=== PATIENT | female | born 1990 | race African-American/Black ===

== ENCOUNTER 2017-12-16 13:41 | Emergency (ER) | payer OTHER ==
[~2017-12-16] VITALS: Ht 177.8 cm; Wt 81.6 kg
--- NOTE | 2017-12-16 13:41 | NUR ---
BART FROM HOME WITH CC OF VAGINAL IRRITATION AND DISCHARGE X 6 DAYS , VSS .
--- NOTE | 2017-12-16 14:30 | NUR ---
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
--- NOTE | 2017-12-16 14:56 | NUR ---
Patient discharged to home in stable condition. Written and verbal after care instructions given. Patient verbalizes understanding of instruction. VSS
[2017-12-16 14:57] VITALS: BP 120/55
[2017-12-16 15:18] LABS: APPEARANCE,URINE Clear (CLEAR); BILIRUBIN,URINE Negative (NEGATIVE); BLOOD, URINE Negative Ery/uL (NEGATIVE); COLOR,URINE Yellow (YELLOW); KETONES,URINE Negative (NEGATIVE); LEUKOCYTE ESTERASE ,URINE Negative (NEGATIVE); NITRITE, URINE Negative (NEGATIVE); PH,URINE 7.5 (5.0-8.0); PROTEIN,URINE Negative (NEGATIVE); UGLUCOSE Negative (NEGATIVE)
[2017-12-16 15:28] LABS: BACTERIA,URINE None seen /HPF (None Seen); SQUAMOUS EPITHELIAL CELL,UR Few /HPF (None Seen); WBC,URINE 0-2 /HPF (0-3)
== END 2017-12-16 15:00 | disposition home or self-care (01) ==
LOC: ER 13:42
DX: B37.3 Candidiasis of vulva and vagina (principal); F12.10 Cannabis abuse, uncomplicated
CPT/HCPCS: 81000-TC; 84703-TC; 87110-TC; 87210-TC; 87491; 87591; A4606; Z7610

== ENCOUNTER 2018-05-31 19:25 | Emergency (ER) | payer SELFPAY ==
[~2018-05-31] VITALS: Ht 177.8 cm; Wt 81.6 kg
--- NOTE | 2018-05-31 19:35 | NUR ---
PT BIBSELF C/O UPPER RESPIRATORY SYMPTOMS X 5 DAYS. PT IS AOX4. RESP EVEN AND UNLABORED. NAD NOTED. PT IN BED 7. WILL CONTINUE TO MONITOR.
--- NOTE | 2018-05-31 19:55 | NUR ---
URINE COLLECTED AND SENT TO LAB
--- NOTE | 2018-05-31 20:25 | NUR ---
RADIOLOGY AT BEDSIDE FOR CXR
[2018-05-31 21:17] VITALS: BP 131/83
--- NOTE | 2018-05-31 22:23 | NUR ---
Patient discharged to home in stable condition. Written and verbal after care instructions given. Patient verbalizes understanding of instruction. PT AMBULATORY WITH STEADY GAIT.
== END 2018-05-31 22:25 | disposition home or self-care (01) ==
LOC: ER 19:28
DX: J18.9 Pneumonia, unspecified organism (principal); Z60.2 Problems related to living alone
CPT/HCPCS: 71045; 84703; 87804 ×2; 99284; A4606; Z7610; 87400

== ENCOUNTER 2018-11-10 18:24 | Emergency (ER) | payer SELFPAY ==
[~2018-11-10] VITALS: Ht 177.8 cm; Wt 99.8 kg
[2018-11-10 18:27] VITALS: BP 127/72
[2018-11-10 19:39] LABS: APPEARANCE,URINE Clear (CLEAR); BILIRUBIN,URINE SMALL (NEGATIVE); BLOOD, URINE Trace-lysed Ery/uL (NEGATIVE); COLOR,URINE Yellow (YELLOW); KETONES,URINE Negative (NEGATIVE); LEUKOCYTE ESTERASE ,URINE Negative (NEGATIVE); NITRITE, URINE Negative (NEGATIVE); PH,URINE 5.5 (5.0-8.0); PROTEIN,URINE 30 mg/dl (NEGATIVE); UGLUCOSE Negative (NEGATIVE); UROBILINOGEN,URINE 0.2 EU/dL (0.2)
[2018-11-10 19:40] LABS: RBC,URINE 2-4/HPF /HPF (0-2)
[2018-11-10 19:41] LABS: BACTERIA,URINE Few /HPF (None Seen); MUCUS,URINE Moderate /LPF (None Seen); SQUAMOUS EPITHELIAL CELL,UR Few /HPF (None Seen); URINE AMORPHOUS URATE Few /HPF (None Seen); WBC,URINE 0-2 /HPF (0-3)
== END 2018-11-10 20:21 | disposition home or self-care (01) ==
LOC: ER 18:24
DX: N94.19 Other specified dyspareunia (principal); F10.10 Alcohol abuse, uncomplicated; Y90.9 Presence of alcohol in blood, level not specified; Z60.2 Problems related to living alone
CPT/HCPCS: 81000-TC; 84703-TC; 87210-TC; 87491; 87591

== ENCOUNTER 2019-07-22 15:55 | Emergency (ER) | payer OTHER ==
[~2019-07-22] VITALS: Ht 177.8 cm; Wt 102.1 kg
[2019-07-22 16:00] VITALS: BP 125/85
[2019-07-22] MEDS ORDERED: IBUPROFEN 600 MG TABLET PO ONE ×2 (17:50→18:00)
[2019-07-22] MEDS ORDERED: DEXAMETHASONE 4 MG TABLET ONE (17:52)
[2019-07-22] MEDS ORDERED: DEXAMETHASONE 1 MG TABLET PO ONE (18:00)
== END 2019-07-22 18:20 | disposition home or self-care (01) ==
LOC: ER 15:58
DX: J02.9 Acute pharyngitis, unspecified (principal); Z60.2 Problems related to living alone
CPT/HCPCS: 87070; 87880; 99283; J8540; 86403-TC